=== PATIENT | male | born 1950 | race Hispanic/Latino ===

== ENCOUNTER 2019-12-06 12:05 | Observation (INO) | payer BC, OTHER ==
--- OUTSIDE RECORDS SUMMARY | 2019-12-06 12:07 | XMS REPORT | Continuity of Care Document ---
:1950 Author Organization [facility] Address [address] [place] [address] Phone Unavailable Care Team Providers Name Role Phone PHYSICIAN, NO Primary Care Physician Unavailable Insurance Providers Guarantor Larry Brito Address [address] [place] [address] [facility] [employer] Claims Policy Number [id number] Subscriber's Name Larry Brito Relationship Self / Same As Patient Group Number . Group Name NA Advance Directives Directive Response Recorded Date/Time Advance Directives No 05/10/15 7:02pm Directive to Physicians/Living Will No 05/10/15 7:02pm Health Care Proxy No 05/10/15 7:02pm Organ Donor No 05/10/15 7:02pm Medical Power of Cutter Aluminum Sheet No 05/10/15 7:02pm Patient/Family Given Education Material R/T Directives? No 01/09/19 8:48am Problems Medical Problem Onset Date Status Cellulitis Unknown Acute Complete rotator cuff tear of left shoulder Unknown Elevated lipase Unknown Acute Left wrist sprain Unknown Acute Muscle pain Unknown Acute Rash and nonspecific skin eruption Unknown Acute Rupture of left supraspinatus tendon Unknown Medications Unable to obtain medications. Social History Social History Problem Response Recorded Date/Time Onset Date Status Hx Physical Abuse No 05/10/2015 7:02pm Not Applicable Not Applicable Smoking Status Start Date Stop Date Never smoker Hospital Discharge Instructions No hospital discharge instruction information available. Plan of Care Prescriptions See Medication Section Functional Status No functional status information available. Allergies, Adverse Reactions, Alerts Allergen Type Severity Reaction Status Last Updated No Known Allergies Allergy Unknown Active 09/14/14 Immunizations No immunization information available. Vital Signs No vital sign information available. Results No relevant diagnostic test, laboratory data and/or discharge summary information available. Procedures No procedure information available. Encounters Encounter Location Arrival/Admit Date Discharge/Depart Date Attending Provider Discharged [place] 01/09/19 8:52am 01/30/19 11:59pm [facility] Recent Diagnosis Complete rotator cuff tear of left shoulder Rupture of left supraspinatus tendon
--- OUTSIDE RECORDS SUMMARY | 2019-12-06 12:07 | XMS REPORT | Continuity of Care Document ---
:1950 Author Organization [facility] Address [address] [place] [address] Phone Unavailable Care Team Providers Name Role Phone PHYSICIAN, NO Primary Care Physician Unavailable Insurance Providers Guarantor Herbert Brito Address [address] [place] [phone] Email NO EMAIL Payer [employer] Claims Policy Number [id number] Subscriber's Name Herbert Brito Relationship Self / Same As Patient Group Number NA Group Name NA Advance Directives Directive Response Recorded Date/Time Advance Directives No 05/10/15 7:02pm Directive to Physicians/Living Will No 05/10/15 7:02pm Health Care Proxy No 05/10/15 7:02pm Organ Donor No 05/10/15 7:02pm Medical Power of Biztalk Architect No 05/10/15 7:02pm Chief Complaint and Reason for Visit Chief Complaint Extremity Pain/Injury Reason for Visit Laceration of finger of left hand Problems Medical Problem Onset Date Status Cellulitis Unknown Acute Complete rotator cuff tear of left shoulder Unknown Elevated lipase Unknown Acute Left wrist sprain Unknown Acute Muscle pain Unknown Acute Rash and nonspecific skin eruption Unknown Acute Rupture of left supraspinatus tendon Unknown Past Problems Medical Problem Onset Date Status Laceration of finger of left hand Unknown Acute Medications Unable to obtain medications. Social History Social History Problem Response Recorded Date/Time Onset Date Status Hx Physical Abuse No 05/25/2019 2:04pm Not Applicable Not Applicable Smoking Status Start Date Stop Date Never smoker Hospital Discharge Instructions No hospital discharge instruction information available. Plan of Care Discharge Date 05/25/19 3:47pm Instructions/Education Provided Laceration Care, Adult, [id number] Prescriptions See Medication Section Referrals NO PHYSICIAN Additional Instructions/Education KEEP AREA CLEAN AND DRY USE TYLENOL OR MOTRIN DIRECTED FOR PAIN. FOLLOW UP WITH A PRIMARY CARE PROVIDER IN 2-3 DAYS HAVE SUTURES REMOVED IN 7-10 DAYS RETURN TO THE ER IF YOUR SYMPTOMS WORSEN Functional Status No functional status information available. Allergies, Adverse Reactions, Alerts Allergen Type Severity Reaction Status Last Updated No Known Allergies Allergy Unknown Active 09/14/14 Immunizations Immunization Event Date Type Not Given Dose Number Lot Number Software Applications Architect Reason TDaP 05/25/19 Administered 1 [id number] SANOFI PS Vital Signs Acute Vital Signs Vital Response Date/Time Blood Pressure 130/82 mm Hg 05/25/2019 3:54pm Pulse Pulse Rate (adult) 60 beats per minute (60 - 100) 05/25/2019 3:54pm Respiratory Rate 18 breaths per minute (10 - 24) 05/25/2019 3:54pm Temperature Source Oral 05/25/2019 3:54pm Height 5 ft 7 in 05/25/2019 2:04pm Weight 194 lb 05/25/2019 2:04pm Body Mass Index 30.4 kg/m^2 05/25/2019 2:04pm Results No relevant diagnostic test, laboratory data and/or discharge summary information available. Procedures No procedure information available. Encounters Encounter Location Arrival/Admit Date Discharge/Depart Date Attending Provider Departed [place] 05/25/19 1:44pm 05/25/19 3:47pm [facility] JESIKA [facility] Recent Diagnosis
[2019-12-06] MEDS ORDERED: NA CHLORIDE 0.9% 1,000 ML ONE (12:30)
[2019-12-06 12:45] LABS: Absolute Lymphocytes (CBC) 0.9 K/uL (0.7-4.9); Basophils % 0.5 % (0-1.3); Hematocrit 48.5 % (39.6-49.0); Lymphocytes % 12.2 % (15.3-44.8); MPV 8.4 fL (7.6-11.3); RBC Red Blood Cell Count 5.65 M/uL (4.33-5.43)
[2019-12-06 12:46] LABS: Protime INR 1.08
[2019-12-06 12:59] LABS: Urine Blood TRACE (NEG); Urine Glucose NEGATIVE (NEG); Urine Protein 1+ (NEG); Urine Specific Gravity 1.025 (1.005-1.030); Urine pH 5.5 (5.0-7.0)
[2019-12-06 13:01] LABS: ALT/SGPT 47 U/L (12-78); AST/SGOT 41 U/L (15-37); Alkaline Phosphatase 154 U/L (45-117); BUN Blood Urea Nitrogen 14 mg/dL (7-18); Bicarbonate 26 mmol/L (21-32); Bilirubin Direct 0.2 mg/dL (0-0.2); Bilirubin Total 0.5 mg/dL (0.2-1.0); Glucose Level 98 mg/dL (74-106); Magnesium 2.1 mg/dL (1.8-2.4); NT PRO-BNP 93 pg/mL (<125); Potassium 4.5 mmol/L (3.5-5.1); Protein, Total 7.4 g/dL (6.4-8.2); Sodium Level 136 mmol/L (136-145); Troponin (Emerg Dept Use Only) < 0.02 ng/mL (0.0-0.045)
[2019-12-06 13:21] LABS: Urine Bacteria <20 /HPF (NONE SEEN); Urine Culture Reflex Order NOT NEEDED; Urine Mucus LIGHT /HPF (NONE SEEN); Urine RBC <5 /HPF (NONE SEEN)
--- NOTE | 2019-12-06 13:44 | RAD REPORT ---
EXAM DESCRIPTION: CTAbdomen Pelvis W Contrast - 12/06/2019 1:24 pm CLINICAL HISTORY: Abdominal pain. EPIGASTRIC PAIN COMPARISON: No comparisons TECHNIQUE: Biphasic CT imaging of the abdomen and pelvis was performed with 100 ml non-ionic IV cont rast. All CT scans are performed using dose optimization technique as appropriate and may include automated exposure control or mA/KV adjustment according to patient size. FINDINGS: Peripherally located ground-glass opacities are seen in both lower lobes. The liver, spleen, pancreas, adrenal glands and kidneys are within normal limits. Small right renal c yst. No bowel obstruction, free air, free fluid or abscess. Sigmoid diverticulosis without diverticulitis. The appendix is normal. No evidence of significant lymphadenopathy. No suspicious bony findings. Small bilateral fat containing inguinal hernias. IMPRESSION: No acute intra-abdominal or pelvic finding. Peripheral bilateral ground-glass opacities in the lung bases could indicate atypical pneumonia.
--- NOTE | 2019-12-06 13:51 | RAD REPORT ---
EXAM DESCRIPTION: RAD - Chest Single View - 12/06/2019 12:43 pm CLINICAL HISTORY: Epigastric pain Chest pain. COMPARISON: CTSTONE PROTOCOL dated 05/12/2015 FINDINGS: Portable technique limits examination quality. Vague areas of hazy lung opacity in both lung bases seen, slightly greater on the left peripherally. Apical pulmonary infection is a possibility. The heart is normal in size. No displaced fractures.
[2019-12-06] MEDS ORDERED: CEFTRIAXONE/SWI 1gm 1 GM/10 ML SYR ONE (14:31)
[2019-12-06] MEDS ORDERED: AZITHROMYCIN IV 500 MG in NA CHLORIDE 0.9% 250 ML IVPB ONE (15:00)
--- NOTE | 2019-12-06 16:06 | ER ---
Nurse's Notes [facility] Name: Larry Sprague Age: 69 yrs Sex: Male : 1950 Arrival Date: 12/06/2019 Time: 12:08 Bed 7 Private MD: Diagnosis: Pneumonia, unspecified organism Presentation: 12/05 12:20 Chief complaint: Patient states: Urinary frequency, burning with urination, epigastric jl7 pain and weakness x 3 days. Coronavirus screen: Proceed with normal triage. Ebola Screen: No symptoms or risks identified at this time. Initial Sepsis Screen: Does the patient meet any 2 criteria? No. Patient's initial sepsis screen is negative. Does the patient have a suspected source of infection? No. Patient's initial sepsis screen is negative. Risk Assessment: Do you want to hurt yourself or someone else? Patient reports no desire to harm self or others. Onset of symptoms was December 03, 2019. Care prior to arrival: None. 12:20 Method Of Arrival: Ambulatory [facility] 12:29 Acuity: KURT 3 jl7 Triage Assessment: 12:20 General: Appears in no apparent distress. uncomfortable, Behavior is cooperative, jl7 restless. Pain: Complains of pain in epigastric area and right upper quadrant Pain currently is 6 out of 10 on a pain scale. Pain began 2-3 days ago. Neuro: Level of Consciousness is awake, alert, obeys commands, Oriented to person, place, time, situation. Cardiovascular: Patient's skin is warm and dry. Respiratory: Airway is patent Respiratory effort is even, unlabored, Respiratory pattern is regular, symmetrical. GI: Patient currently denies diarrhea, nausea, vomiting. Derm: Skin is pink, warm \T\ dry. Historical: - Allergies: 12:41 No Known Allergies; jl7 - Home Meds: 12:41 uknown prostate med [Active]; jl7 - PMHx: 12:41 prostate problems; jl7 - PSHx: 12:41 None; jl7 - Immunization history:: Adult Immunizations unknown. - Social history:: Smoking status: Patient denies any tobacco usage or history of. Screenin:50 Abuse screen: Denies threats or abuse. Denies injuries from another. Nutritional jl7 screening: No deficits noted. Tuberculosis screening: No symptoms or risk factors identified. Fall Risk IV access (20 points). Total Salas Fall Scale indicates No Risk (0-24 pts). Assessment: 12:50 General: See triage assessment. jl7 14:00 Reassessment: Patient appears in no apparent distress at this time. No changes from jl7 previously documented assessment. Patient and/or family updated on plan of care and expected duration. Pain level reassessed. Patient is alert, oriented x 3, equal unlabored respirations, skin warm/dry/pink. 15:00 Reassessment: Patient appears in no apparent distress at this time. No changes from jl7 previously documented assessment. Patient and/or family updated on plan of care and expected duration. Pain level reassessed. Patient is alert, oriented x 3, equal unlabored respirations, skin warm/dry/pink. 15:02 Reassessment: ERP at bedside discussing results and POC. jl7 16:20 Reassessment: Dr. Montgomery at bedside. jl7 Vital Signs: 12:29 BP 112 / 70; Pulse 83; Resp 21 S; Temp 98.8(O); Pulse Ox 96% on R/A; Weight 84.82 kg jl7 (R); Pain 6/10; 13:41 BP 114 / 74; Pulse 64; Resp 18; Pulse Ox 99% on R/A; em 15:00 BP 119 / 83; Pulse 71; Resp 23 S; Pulse Ox 99% on R/A; jl7 ED Course: 12:08 Patient arrived in ED. ag5 12:16 Robert Mccord NP is PHCP. pm1 12:16 Javier Hernandez MD is Attending Physician. pm1 12:17 Chela Tidwell RN is Primary Nurse. jl7 12:20 Arm band placed on right wrist. jl7 12:35 Initial lab(s) drawn, by hi, sent to lab. Urine collected: clean catch specimen, clear, jl7 EKG done, by ED staff, reviewed by Robert Mccord NP. Inserted saline lock: 20 gauge in right antecubital area, using aseptic technique. Blood collected. 12:40 Triage completed. jl7 12:43 XRAY Chest (1 view) In Process Unspecified. EDMS 12:50 Patient has correct armband on for positive identification. Placed in gown. Bed in low jl7 position. Call light in reach. Side rails up X2. monitoring and evaluation advisor on. Pulse ox on. NIBP on. Warm blanket given. 13:24 CT completed. Patient moved back from CT. mw3 13:25 CT Abd/Pelvis - IV Contrast Only In Process Unspecified. EDMS 14:20 Inserted saline lock: 20 gauge in left antecubital area, using aseptic technique. Blood jl7 collected. 14:25 Repeat lab(s) drawn. by me, sent to lab. First set of blood cultures drawn by me. jl7 14:30 Second set of blood cultures drawn by me, Flu and/or RSV swab sent to lab. COVID-19 jl7 swab sent to lab. 16:05 Yariel Montgomery DO is Hospitalizing Provider. pm1 17:00 [facility] unable to give a PUI # due to patient being a resident of [facility]/ Given the number for [address] \\[phone]. 17:[address] [phone]/ spoke to the dispatch/ he will erendira and notify the pulmonary fellow to call us back regarding a PUI/. 17:46 No provider procedures requiring assistance completed. Patient admitted, IV remains in jl7 place. intact, No redness/swelling at site. Administered Medications: 12:26 Drug: NS 0.9% 1000 ml Route: IV; Rate: 1000 ml; Site: right antecubital; em 13:30 Follow up: Response: No adverse reaction; IV Status: Completed infusion; IV Intake: jl7 1000ml 14:25 Drug: Rocephin 1 grams Route: IV; Rate: calculated rate; Site: right antecubital; jl7 14:30 Follow up: Response: No adverse reaction; IV Status: Completed infusion jl7 14:51 Drug: AZITHromycin 500 mg Route: IVPB; Infused Over: 1 hrs; Site: left antecubital; jl7 15:51 Follow up: Response: No adverse reaction; IV Status: Completed infusion jl7 Intake: 13:30 IV: 1000ml; Total: 1000ml. jl7 Outcome: 16:05 Decision to Hospitalize by Provider. pm1 17:46 Admitted to Tele accompanied by tech, via stretcher, room 410, with chart, Report jl7 called to OMER Rocha 17:46 Condition: stable 17:46 Discharge instructions given to patient, Instructed on the need for admit, Demonstrated understanding of instructions. 17:47 Patient left the ED. jl7 Signatures: Dispatcher [employer] Negro Weldon, RN Robert Rubin NP ANALYTICS SPECIALIST pm1 Chela Tidwell RN RN jl7 Carlyn Ramon Michelle mw3 Giovanna Casey 5
--- NOTE | 2019-12-06 16:06 | EDPHYS ---
Physician Documentation [facility] Name: Larry Sprague Age: 69 yrs Sex: Male : 1950 Arrival Date: 12/06/2019 Time: 12:08 Bed 7 Private MD: ED Physician Javier Hernandez HPI: 12/05 12:25 This 69 yrs old Male presents to ER via Ambulatory with complaints of General pm1 Weakness, Abdominal Pain. 12:25 The patient presents with abdominal pain in the epigastric area. Onset: The pm1 symptoms/episode began/occurred 3 day(s) ago. The symptoms do not radiate. Associated signs and symptoms: Pertinent positives: dysuria, Pertinent negatives: nausea, vomiting, and diarrhea, chest pain, fever, shortness of breath. The symptoms are described as vague. Modifying factors: The symptoms are alleviated by nothing, the symptoms are aggravated by nothing. Severity of pain: in the emergency department the pain is actually worse. The patient has not experienced similar symptoms in the past. Historical: - Allergies: 12:41 No Known Allergies; jl7 - Home Meds: 12:41 uknown prostate med [Active]; jl7 - PMHx: 12:41 prostate problems; jl7 - PSHx: 12:41 None; jl7 - Immunization history:: Adult Immunizations unknown. - Social history:: Smoking status: Patient denies any tobacco usage or history of. ROS: 12:25 ENT: Negative for injury, pain, and discharge, Neck: Negative for injury, pain, and pm1 swelling, Cardiovascular: Negative for chest pain, palpitations, and edema, Respiratory: Negative for shortness of breath, cough, wheezing, and pleuritic chest pain. 12:25 Back: Negative for injury and pain, MS/Extremity: Negative for injury and deformity, Skin: Negative for injury, rash, and discoloration, Neuro: Negative for headache, weakness, numbness, tingling, and seizure. 12:25 Constitutional: Positive for body aches, Negative for chills, fever. 12:25 Abdomen/GI: Positive for abdominal pain, Negative for nausea, vomiting, and diarrhea, constipation. 12:25 : Positive for burning with urination. Exam: 12:25 Constitutional: This is a well developed, well nourished patient who is awake, alert, pm1 and in no acute distress. Head/Face: Normocephalic, atraumatic. Chest/axilla: Normal chest wall appearance and motion. Nontender with no deformity. No lesions are appreciated. Cardiovascular: Regular rate and rhythm with a normal S1 and S2. No gallops, murmurs, or rubs. Normal PMI, no JVD. No pulse deficits. Respiratory: Lungs have equal breath sounds bilaterally, clear to auscultation and percussion. No rales, rhonchi or wheezes noted. No increased work of breathing, no retractions or nasal flaring. 12:25 Back: No spinal tenderness. No costovertebral tenderness. Full range of motion. Skin: Warm, dry with normal turgor. Normal color with no rashes, no lesions, and no evidence of cellulitis. MS/ Extremity: Pulses equal, no cyanosis. Neurovascular intact. Full, normal range of motion. 12:25 Abdomen/GI: Inspection: abdomen appears normal, Palpation: soft, in all quadrants, mild abdominal tenderness, in the epigastric area, mass, is not appreciated, rebound tenderness, is not appreciated. 12:25 Neuro: Exam negative for acute changes, Orientation: is normal, Motor: is normal, moves all fours. Vital Signs: 12:29 BP 112 / 70; Pulse 83; Resp 21 S; Temp 98.8(O); Pulse Ox 96% on R/A; Weight 84.82 kg jl7 (R); Pain 6/10; 13:41 BP 114 / 74; Pulse 64; Resp 18; Pulse Ox 99% on R/A; em 15:00 BP 119 / 83; Pulse 71; Resp 23 S; Pulse Ox 99% on R/A; jl7 MDM: 12:17 Patient medically screened. pm1 15:17 Data reviewed: vital signs. Data interpreted: Pulse oximetry: on room air is 99 %. pm1 Interpretation: normal. Counseling: I had a detailed discussion with the patient and/or guardian regarding: the historical points, exam findings, and any diagnostic results supporting the discharge/admit diagnosis, lab results, radiology results, the need for further work-up and treatment in the hospital. 15:17 Refusal of service: The patient/guardian displays adequate decision making capability pm1 and despite a detailed discussion of alternatives, benefits, risks, and consequences refuses: Admission to the hospital for further work-up and treatment. 15:32 ED course: Patient gave me permission to discuss findings and diagnosis with his pm1 daughter Hodan, who is the patient's ride home. She will call her father because she would like him to stay in the hospital. 16:05 ED course: Patient decided to stay in the hospital. pm1 16:09 Physician consultation: Yariel Montgomery DO regarding admission, patient's condition, and pm1 will see patient in ED. 12/05 12:23 Order name: Basic Metabolic Panel pm12/05 12:23 Order name: CBC with Diff; Complete Time: 12:53 pm1 12/05 12:23 Order name: LFT's; Complete Time: 13:11 pm1 12/05 12:23 Order name: Magnesium; Complete Time: 13:11 pm12/05 12:23 Order name: NT PRO-BNP; Complete Time: 13:11 pm1 12/05 12:23 Order name: PT-INR; Complete Time: 12:53 pm1 12/05 12:23 Order name: Troponin (emerg Dept Use Only); Complete Time: 13:11 pm1 12/05 12:23 Order name: Urine Microscopic Only; Complete Time: 13:21 pm1 12/05 12:32 Order name: Basic Metabolic Panel; Complete Time: 13:11 EDMS 12/05 12:53 Order name: Urine Dipstick--Ancillary (enter results); Complete Time: 13:11 eb 12/05 13:53 Order name: Flu; Complete Time: 15:09 pm12/05 13:53 Order name: Strep; Complete Time: 15:09 pm12/05 13:53 Order name: COVID-19 pm12/05 13:59 Order name: Blood Culture Adult (2) pm1 12/05 12:23 Order name: XRAY Chest (1 view); Complete Time: 13:54 pm1 12/05 12:23 Order name: EKG; Complete Time: 12:32 pm12/05 12:23 Order name: Cardiac monitoring; Complete Time: 12:54 pm12/05 12:23 Order name: EKG - Nurse/Tech; Complete Time: 12:54 pm12/05 12:23 Order name: IV Saline Lock; Complete Time: 12:54 pm1 12/05 12:23 Order name: Labs collected and sent; Complete Time: 12:54 pm1 12/05 12:23 Order name: O2 Per Protocol; Complete Time: 12:54 pm1 12/05 12:23 Order name: O2 Sat Monitoring; Complete Time: 12:54 pm1 12/05 12:23 Order name: CT Abd/Pelvis - IV Contrast Only; Complete Time: 13:51 pm1 12/05 12:23 Order name: Urine Dipstick-Ancillary (obtain specimen); Complete Time: 12:54 pm12/05 13:59 Order name: Procalcitonin; Complete Time: 15:09 pm1 12/05 13:59 Order name: Lactate; Complete Time: 14:47 pm1 12/05 14:55 Order name: Throat Culture EDDE Administered Medications: 12:26 Drug: NS 0.9% 1000 ml Route: IV; Rate: 1000 ml; Site: right antecubital; 13:30 Follow up: Response: No adverse reaction; IV Status: Completed infusion; IV Intake: jl7 1000ml 14:25 Drug: Rocephin 1 grams Route: IV; Rate: calculated rate; Site: right antecubital; jl7 14:30 Follow up: Response: No adverse reaction; IV Status: Completed infusion jl7 14:51 Drug: AZITHromycin 500 mg Route: IVPB; Infused Over: 1 hrs; Site: left antecubital; jl7 15:51 Follow up: Response: No adverse reaction; IV Status: Completed infusion jl7 Disposition: 18:26 Co-signature as Attending Physician, Javier Hernandez MD. rn Disposition: 12/06/19 16:05 Hospitalization ordered by Yariel Montgomery for Observation. Preliminary diagnosis is Pneumonia, unspecified organism. - Bed requested for Telemetry/MedSurg (Inpatient). - Status is Observation. jl7 - Condition is Stable. - Problem is new. - Symptoms have improved. Signatures: Dispatcher [employer] EDNegro Figueroa, RN Javier Argueta MD MD rn Marinas, Patrick, [employer] MAINTENANCE TECHNICIAN pm1 Chela Tidwell RN RN jl7 Carlyn Ramon Corrections: (The following items were deleted from the chart) 16:32 16:05 Hospitalization Ordered by Yariel Montgomery DO for Inpatient Admission. Preliminary eb diagnosis is Pneumonia, unspecified organism. Bed requested for Telemetry/MedSurg (Inpatient). Status is Inpatient Admission. Condition is Stable. Problem is new. Symptoms have improved. pm1 17:09 16:32 12/06/2019 16:05 Hospitalization Ordered by Yariel Montgomery DO for Observation. eb Preliminary diagnosis is Pneumonia, unspecified organism. Bed requested for Telemetry/MedSurg (Inpatient). Status is Observation. Condition is Stable. Problem is new. Symptoms have improved. eb 17:47 17:09 12/06/2019 16:05 Hospitalization Ordered by Yariel Montgomery DO for Observation. jl7 Preliminary diagnosis is Pneumonia, unspecified organism. Bed requested for Telemetry/MedSurg (Inpatient). Status is Observation. Condition is Stable. Problem is new. Symptoms have improved. eb
--- NOTE | 2019-12-06 16:46 | P.HP ---
Certification for Inpatient Patient admitted to: Observation With expected LOS: <2 Midnights Patient will require the following post-hospital care: None Practitioner: I am a practitioner with admitting privileges, knowledge of patient current condition, hospital course, and medical plan of care. Services: Services provided to patient in accordance with Admission requirements found in Title 42 Section 412.3 of the Code of Federal Regulations Patient History Date of Service: 12/06/19 Primary Care Provider: Jeremy Reason for admission: Body aches, chills, abdominal pain History of Present Illness: 69-year-old male with history of BPH. Patient reported abdominal pain , body aches and chills over the last 3 days. He denies any nausea, vomiting, fever, cough, or significant shortness of breath. Continue to have body aches and chills. He has been mainly outside working. He had been replacing some pipes underneath the house. He denies any significant travel out of the country or state. He denies socializing in large groups. 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 Patient came to the ER for further evaluation. Blood pressure stable. Patient was slightly tachypneic and hypoxic whenever he ambulated. White count 7.2, hemoglobin 16. Platelet count 158. Sodium 136, potassium 4.5. BUN of 14, creatinine 1.1 with a GFR 66. Glucose 98. Absolute lymphocytes 0.9. Pro calcitonin negative. Lactic acid negative. Urinalysis negative. CT abdomen showed no GI changes. It did show some ground-glass changes suspicious for atypical pneumonia. Patient was admitted for further evaluation. I saw the patient ER, he did not appear septic. He was stable. He has had poor oral intake. Some body aches still noted. Slight cough noted. Allergies No Known Drug Allergies Allergy (Unverified 05/19/15 22:35) Unknown Home medications list reviewed: Yes - Past Medical/Surgical History Diabetic: No -: BPH -: Left shoulder surgery Psychosocial/ Personal History: Patient is lives at home. - Family History Family History: Reviewed- Non-Contributory - Social History Smoking Status: Former smoker Alcohol use: No CD- Drugs: No Caffeine use: No Place of Residence: Home Review of Systems General: Chills, Weakness, As per HPI Eyes: Unremarkable ENT: Unremarkable Respiratory: Unremarkable Cardiovascular: Unremarkable Gastrointestinal: Abdominal Pain, Unremarkable Genitourinary: Unremarkable Musculoskeletal: Unremarkable Integumentary: Unremarkable Neurological: Unremarkable Lymphatics: Unremarkable Physical Examination - Physical Exam General: Alert, In no apparent distress, Oriented x3, Cooperative HEENT: Atraumatic, Normocephalic, Other (Dry mucous membranes) Neck: Supple Respiratory: Diminished (Diminished to the bases, clear anteriorly) Cardiovascular: Normal pulses, Regular rate/rhythm Gastrointestinal: Normal bowel sounds, Soft and benign, Non-distended, No tenderness, No masses, No rebound, No guarding Musculoskeletal: No erythema, No tenderness, No warmth Integumentary: No tenderness/swelling, No erythema, No warmth, No cyanosis Neurological: Normal speech, Normal strength at 5/5 x4 extr, Normal tone, Normal affect Other Physical/Emotional Findings: When asked to walk in place for 1 min patient was slightly tachypneic and hypoxic. - Studies Laboratory Data (last 24 hrs) 12/06/19 12:30: PT 12.7 H, INR 1.08 12/06/19 12:30: WBC 7.2, Hgb 16.1, Hct 48.5, Plt Count 158 12/06/19 12:30: Sodium 136, Potassium 4.5, BUN 14, Creatinine 1.11, Glucose 98, Magnesium 2.1, Total Bilirubin 0.5, AST 41 H, ALT 47, Alkaline Phosphatase 154 H Microbiology Data (last 24 hrs): 12/06/19 14:10 Nasopharnyx Influenza Type A Antigen Screen - Final 12/06/19 14:10 Nasopharnyx Influenza Type B Antigen Screen - Final 12/06/19 14:10 Throat Group A Streptococcus Rapid Screen - Final Assessment and Plan - Plan Impression: Body aches, chills, abdominal pain secondary to bilateral atypical pneumonia Plan: Patient will be admitted for further evaluation. Patient tachypneic and slightly hypoxic with exertion. Patient appears fine and no hypoxia at rest. Viral culture sent for COVID due to risk factors. Patient given Rocephin and Zithromax in the emergency room. Will start with Levaquin. Will consult pulmonology to further evaluate. Will provide medication for cough and congestion. Will provide Pepcid and zinc. Encourage oral intake. Encourage ambulation. Encourage incentive spirometer. Will provide DVT prophylaxis. Will monitor closely. If improved will consider discharge tomorrow. Will discuss further with pulmonology. Discharge Plan: Home Plan to discharge in: 24 Hours - Advance Directives Does patient have a Living Will: No Does patient have a Durable POA for Healthcare: No - Code Status/Comfort Care Code Status Assessed: Yes (Patient is full code) Time Spent Managing Pts Care (In Minutes): 55
[2019-12-06] MEDS ORDERED: ONDANSETRON 4 MG/2 ML VIAL IV PRN (18:07)
[2019-12-06] MEDS: FAMOTIDINE 20 MG TAB PO SCH (21:00)
[2019-12-06] MEDS: ACETAMINOPHEN 500 MG TAB PO PRN (21:28)
[2019-12-06 21:55] VITALS: BMI 29.2
[2019-12-07] MEDS: ACETAMINOPHEN 500 MG TAB PO PRN ×2 (03:25→07:29)
[2019-12-07] MEDS: FAMOTIDINE 20 MG TAB PO SCH (07:12)
[2019-12-07 07:28] VITALS: O2SAT 96
[2019-12-07] MEDS ORDERED: ZINC SULFATE 220 MG CAP PO SCH (09:00)
[2019-12-07] MEDS ORDERED: levoFLOXacin 500 MG TAB PO SCH (09:00)
[2019-12-07] MEDS ORDERED: FOLIC ACID 1 MG TABLET PO SCH (09:00)
[2019-12-07] MEDS ORDERED: ENOXAPARIN 40 MG/0.4 ML SQ SCH (09:00)
--- NOTE | 2019-12-07 11:14 | P.DS ---
Admission Date: 12/06/19 Discharge Date: 12/07/19 Primary Care Provider: Jeremy Disposition: ROUTINE DISCHARGE Discharge Condition: GOOD Reason for Admission: Body aches, chills, abdominal pain Consultations: Pulmonary-Dr. Moore Procedures: CXR: COMPARISON: CTSTONE PROTOCOL dated 05/12/2015 FINDINGS: Portable technique limits examination quality. Vague areas of hazy lung opacity in both lung bases seen, slightly greater on the left peripherally. Apical pulmonary infection is a possibility. The heart is normal in size. No displaced fractures. CT scan: FINDINGS: Peripherally located ground-glass opacities are seen in both lower lobes. The liver, spleen, pancreas, adrenal glands and kidneys are within normal limits. Small right renal cyst. No bowel obstruction, free air, free fluid or abscess. Sigmoid diverticulosis without diverticulitis. The appendix is normal. No evidence of significant lymphadenopathy. No suspicious bony findings. Small bilateral fat containing inguinal hernias. IMPRESSION: No acute intra-abdominal or pelvic finding. Peripheral bilateral ground-glass opacities in the lung bases could indicate atypical pneumonia. Medical Problem List: Body aches, chills, abdominal pain secondary to bilateral atypical pneumonia Brief History of Present Illness: 69-year-old male with history of BPH. Patient reported abdominal pain , body aches and chills over the last 3 days. He denies any nausea, vomiting, fever, cough, or significant shortness of breath. Continue to have body aches and chills. He has been mainly outside working. He had been replacing some pipes underneath the house. He denies any significant travel out of the country or state. He denies socializing in large groups. 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 Patient came to the ER for further evaluation. Blood pressure stable. Patient was slightly tachypneic and hypoxic whenever he ambulated. White count 7.2, hemoglobin 16. Platelet count 158. Sodium 136, potassium 4.5. BUN of 14, creatinine 1.1 with a GFR 66. Glucose 98. Absolute lymphocytes 0.9. Pro calcitonin negative. Lactic acid negative. Urinalysis negative. CT abdomen showed no GI changes. It did show some ground-glass changes suspicious for atypical pneumonia. Patient was admitted for further evaluation. I saw the patient ER, he did not appear septic. He was stable. He has had poor oral intake. Some body aches still noted. Slight cough noted. Hospital Course: Patient presented with body aches, chills and abdominal pain. Patient found to have bilateral atypical pneumonia. Patient was slightly tachypneic and hypoxic with exertion. Patient was admitted for further evaluation and treatment. Patient was started on Levaquin. Patient is currently being evaluated for COVID. Pulmonology has been consulted. At this time patient without significant shortness of breath. Some fever noted. Patient able to ambulate without shortness of breath, tachypnea, hypoxia or tachycardia. Patient desires to go home. Case discussed with pulmonology. Patient will be discharged home on Levaquin 500 mg daily for 7 days. Patient will be provided Tessalon Perles 100 mg 3 times a day as needed for cough and Mucinex 600 mg twice daily as needed for congestion. Patient may follow up with pulmonology in 1 week to follow up this hospitalization. Recommend to recheck chest x-ray in 2 -4 weeks to monitor his progress. Since COVID testing is still pending at discharge, patient will have to be quarantined at home. If testing comes back negative patient will continue with medication. If positive he will get a phone call as medications will need to be changed. CDC guidelines on quarantine will be provided. Patient we followed by health department. Prior to discharge home medications and chronic medical conditions reviewed. Patient with BPH. Patient may continue with his current medication. Patient has been taking Terbinafine likely for nail fungus. Will discontinue this medication as this may increase liver function tests. 1 of his liver function test was slightly abnormal. Therefore at discharge terbinafine will be discontinued. Recommend follow up with his PCP to further address and monitor. Vital Signs/Physical Exam: Temp Pulse Resp BP Pulse Ox 101.7 F H 67 18 141/69 H 95 12/07/19 07:29 12/07/19 07:00 12/07/19 07:00 12/07/19 07:00 12/07/19 07:00 General: Alert, In no apparent distress, Oriented x3, Cooperative HEENT: Atraumatic Neck: Supple Respiratory: Other (Slight improvement in air movement.) Cardiovascular: Normal pulses, Regular rate/rhythm Gastrointestinal: Normal bowel sounds, Soft and benign, No ascites, No tenderness, No masses, No rebound, No guarding Neurological: Normal speech, Normal strength at 5/5 x4 extr, Normal tone, Normal affect Other Physical/Emotional Findings: Patient was able to walk in place for at least a min without getting short of breath. Patient appropriate. Vital signs stable except for fever at times. Laboratory Data at Discharge: WBC 7.2 K/uL (4.3-10.9) 12/06/19 12:30 Hgb 16.1 g/dL (13.6-17.9) 12/06/19 12:30 Hct 48.5 % (39.6-49.0) 12/06/19 12:30 Plt Count 158 K/uL (152-406) 12/06/19 12:30 PT 12.7 SECONDS (9.5-12.5) H 12/06/19 12:30 INR 1.08 12/06/19 12:30 Sodium 136 mmol/L (136-145) 12/06/19 12:30 Potassium 4.5 mmol/L (3.5-5.1) 12/06/19 12:30 BUN 14 mg/dL (7-18) 12/06/19 12:30 Creatinine 1.11 mg/dL (0.55-1.3) 12/06/19 12:30 Glucose 98 mg/dL (74-106) 12/06/19 12:30 Magnesium 2.1 mg/dL (1.8-2.4) 12/06/19 12:30 Total Bilirubin 0.5 mg/dL (0.2-1.0) 12/06/19 12:30 AST 41 U/L (15-37) H 12/06/19 12:30 ALT 47 U/L (12-78) 12/06/19 12:30 Alkaline Phosphatase 154 U/L (45-117) H 12/06/19 12:30 Home Medications: Brimonidine Tartrate/Timolol [Combigan 0.2%-0.5% Eye Drops] 1 drop EACH EYE BID 12/06/19 Latanoprost Ophth [Xalatan 0.005%*] 1 drop EACH EYE BEDTIME 12/06/19 Tamsulosin [Flomax*] 0.4 mg PO DAILY AT SUPPER 12/06/19 Benzonatate [Tessalon Perle] 100 mg PO TID PRN #15 cap 12/07/19 Guaifenesin [Mucinex] 600 mg PO BID PRN #15 tab.er.12h 12/07/19 Zinc Sulfate [Zinc Sulfate*] 220 mg PO DAILY #30 cap 12/07/19 levoFLOXacin [Levaquin*] 500 mg PO DAILY #7 tab 12/07/19 New Medications: Benzonatate [Tessalon Perle] 100 mg PO TID PRN #15 cap PRN Reason: Cough Guaifenesin [Mucinex] 600 mg PO BID PRN #15 tab.er.12h PRN Reason: Cough levoFLOXacin [Levaquin*] 500 mg PO DAILY #7 tab Zinc Sulfate [Zinc Sulfate*] 220 mg PO DAILY #30 cap Patient Discharge Instructions: Patient presented with body aches, chills and abdominal pain. Patient found to have bilateral atypical pneumonia. Patient was slightly tachypneic and hypoxic with exertion. Patient was admitted for further evaluation and treatment. Patient was started on Levaquin. Patient is currently being evaluated for COVID. Pulmonology has been consulted. At this time patient without significant shortness of breath. Some fever noted. Patient able to ambulate without shortness of breath, tachypnea, hypoxia or tachycardia. Patient desires to go home. Case discussed with pulmonology. Patient will be discharged home on Levaquin 500 mg daily for 7 days. Patient will be provided Tessalon Perles 100 mg 3 times a day as needed for cough and Mucinex 600 mg twice daily as needed for congestion. Patient may follow up with pulmonology in 1 week to follow up this hospitalization. Recommend to recheck chest x-ray in 2-4 weeks to monitor his progress. Since COVID testing is still pending at discharge, patient will have to be quarantined at home. If testing comes back negative patient will continue with medication. If positive he will get a phone call as medications will need to be changed. CDC guidelines on quarantine will be provided. Patient we followed by health department. Prior to discharge home medications and chronic medical conditions reviewed. Patient with BPH. Patient may continue with his current medication. Patient has been taking Terbinafine likely for nail fungus. Will discontinue this medication as this may increase liver function tests. 1 of his liver function test was slightly abnormal. Therefore at discharge terbinafine will be discontinued. Recommend follow up with his PCP to further address and monitor. Diet: AHA Activity: Ad yolie Time spent managing pt's care (in minutes): 55
[2019-12-07 11:22] VITALS: BP 137/77; TEMP 97.7
--- NOTE | 2019-12-07 16:51 | EKG ---
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
== END 2019-12-07 14:00 | disposition home or self-care (01) ==
LOC: ER 12:05 → ERHOLD 16:35 → 4TH 17:22
PROVIDERS: ADMIT Family Medicine; ATTEND Family Medicine
DX: J18.9 Pneumonia, unspecified organism (principal); R09.02 Hypoxemia; R10.9 Unspecified abdominal pain; N40.0 Benign prostatic hyperplasia without lower urinary tract symptoms; Z03.818 Encounter for observation for suspected exposure to other biological agents ruled out; Z87.891 Personal history of nicotine dependence
CPT/HCPCS: 96365; 96361; 93005; 87040 ×2; 87070; 85025; 80048; 36415; 83735; 85610; 80076; 87081; 83605; 84484; 84145; 83880; 87804 ×2; 74177; 71045; 96375; 99285; U0001; Q9967; J0456; J1650; J0696; J7030 ×2; J2405; G0378 ×3; 81003; 81015